=== PATIENT | male | born 1940 | race Caucasian/White ===

== ENCOUNTER 2017-07-06 04:28 | Emergency (ER) | payer BC, MEDICARE ==
[2017-07-06 04:31] VITALS: BP 211/91; PULSE 69; RESP 20; TEMP 97.4; O2SAT 95
[2017-07-06 05:17] VITALS: BP 201/89; PULSE 81; RESP 20; O2SAT 97
[2017-07-06 05:19] LABS: AUTOMATED NEUTROPHIL # 14.2 TH/MM3 (1.8-7.7); BASOPHIL % 0.2 % (0.0-2.0); EOSINOPHIL # 0.1 TH/MM3 (0-0.4); EOSINOPHIL % 0.6 % (0.0-4.0); HEMOGLOBIN 13.1 GM/DL (13.0-17.0); LYMPH % 9.3 % (9.0-44.0); LYMPHOCYTE # 1.6 TH/MM3 (1.0-4.8); MEAN CELL VOLUME 93.8 FL (80.0-100.0); MEAN CORPUSCULAR HEMOGLOBIN 31.5 PG (27.0-34.0); MEAN CORPUSCULAR HGB CONC 33.6 % (32.0-36.0); MEAN PLATELET VOLUME 7.6 FL (7.0-11.0); MONO % 6.7 % (0.0-8.0); MONOCYTE # 1.2 TH/MM3 (0-0.9); NEUT % 83.2 % (16.0-70.0); PLATELET COUNT 391 TH/MM3 (150-450); RED BLOOD COUNT 4.16 MIL/MM3 (4.50-5.90); WHITE BLOOD COUNT 17.1 TH/MM3 (4.0-11.0)
--- NOTE | 2017-07-06 05:19 | PD ---
HPI Chief Complaint: Abdominal Pain Time Seen by Provider: 04:52 Travel History International Travel<30 days: No Contact w/Intl Traveler<30days: No Traveled to known affect area: No History of Present Illness HPI 77yo M with PMH of psoriasis presents to the ED with c/o abdominal pain since 8pm today. Said it started off in lower abdomen but now seems to move up to upper abdomen. +Nausea. Feels a little sob but denies any chest pain. Denies any fever, vomiting, dysuria, hematuria, focal weakness or numbness. PFSH Past Medical History Autoimmune Disease: No Blood Disorders: No Cancer: Yes (skin) Cardiovascular Problems: Yes Chest Pain: Yes Endocrine: No Genitourinary: No Musculoskeletal: No Neurologic: No Psychiatric: No Respiratory: No Tetanus Vaccination: Unknown Influenza Vaccination: No Past Surgical History Other Surgery: Yes (skin and polyps) Social History Alcohol Use: Yes (A BEER-NOT EVERYDAY) Tobacco Use: Yes (10 CIGARETTE -NOT EVERYDAY ONLY WHEN HE DRANKS) Substance Use: No Allergies-Medications (Allergen,Severity, Reaction): Coded Allergies: codeine (Verified Allergy, Severe, 07/06/17) throat closes Reported Meds & Prescriptions Reported Meds & Active Scripts Active Zofran Odt (Ondansetron Odt) 4 Mg Tab 4 Mg SL Q12HR PRN Bactrim DS (Sulfamethoxazole-Trimethoprim) 800-160 Mg Tab 1 Tab PO BID Review of Systems Except as stated in HPI: all other systems reviewed are Neg Physical Exam Narrative GENERAL: 77yo M in mild distress. SKIN: Focused skin assessment warm/dry. HEAD: Atraumatic. Normocephalic. EYES: Pupils equal and round. No scleral icterus. No injection or drainage. ENT: No nasal bleeding or discharge. Mucous membranes pink and moist. NECK: Trachea midline. No JVD. CARDIOVASCULAR: Regular rate and rhythm. No murmur appreciated. RESPIRATORY: No accessory muscle use. Clear to auscultation. Breath sounds equal bilaterally. GASTROINTESTINAL: Abdomen soft, +TTP epigastric, RUQ, LUQ. No rebound tenderness or guarding. MUSCULOSKELETAL: No obvious deformities. No clubbing. No cyanosis. No edema. NEUROLOGICAL: Awake and alert. No obvious cranial nerve deficits. Motor grossly within normal limits. Normal speech. PSYCHIATRIC: Appropriate mood and affect; insight and judgment normal. Data Data Last Documented VS Vital Signs Date Time Temp Pulse Resp B/P (MAP) Pulse Ox O2 Delivery O2 Flow Rate FiO2 07/06/17 07:40 07/06/17 07:00 68 16 96 Room Air 07/06/17 04:31 97.4 Orders Orders Complete Blood Count With Diff (07/06/17 04:52) Comprehensive Metabolic Panel (07/06/17 04:52) Lipase (07/06/17 04:52) Urinalysis - C+S If Indicated (07/06/17 04:52) Ct Abd/Pel W Iv Contrast(Rout) (07/06/17 04:52) Electrocardiogram (07/06/17 04:52) Chest, Single Ap (07/06/17 04:52) Troponin I (07/06/17 04:52) Hydralazine Inj (Apresoline Inj) (07/06/17 05:30) Ketorolac Inj (Toradol Inj) (07/06/17 05:30) Ondansetron Odt (Zofran Odt) (07/06/17 05:30) Urine Culture (07/06/17 05:00) Ceftriaxone Inj (Rocephin Inj) (07/06/17 06:30) Iohexol 350 Inj (Omnipaque 350 Inj) (07/06/17 06:20) Acetaminophen (Tylenol) (07/06/17 06:45) Ed Discharge Order (07/06/17 06:58) Labs Laboratory Tests Test 07/06/17 05:00 White Blood Count 17.1 TH/MM3 Red Blood Count 4.16 MIL/MM3 Hemoglobin 13.1 GM/DL Hematocrit 39.0 % Mean Corpuscular Volume 93.8 FL Mean Corpuscular Hemoglobin 31.5 PG Mean Corpuscular Hemoglobin Concent 33.6 % Red Cell Distribution Width 14.0 % Platelet Count 391 TH/MM3 Mean Platelet Volume 7.6 FL Neutrophils (%) (Auto) 83.2 % Lymphocytes (%) (Auto) 9.3 % Monocytes (%) (Auto) 6.7 % Eosinophils (%) (Auto) 0.6 % Basophils (%) (Auto) 0.2 % Neutrophils # (Auto) 14.2 TH/MM3 Lymphocytes # (Auto) 1.6 TH/MM3 Monocytes # (Auto) 1.2 TH/MM3 Eosinophils # (Auto) 0.1 TH/MM3 Basophils # (Auto) 0.0 TH/MM3 CBC Comment DIFF FINAL Differential Comment Urine Color YELLOW Urine Turbidity CLEAR Urine pH 7.0 Urine Specific [place] 1.023 Urine Protein 30 mg/dL Urine Glucose (UA) NEG mg/dL Urine Ketones 10 mg/dL Urine Occult Blood SMALL Urine Nitrite NEG Urine Bilirubin NEG Urine Urobilinogen LESS THAN 2.0 MG/DL Urine Leukocyte Esterase SMALL Urine RBC 5 /hpf Urine WBC 10 /hpf Urine Mucus FEW /lpf Microscopic Urinalysis Comment CULTURE INDICATED Blood Urea Nitrogen 16 MG/DL Creatinine 0.90 MG/DL Random Glucose 131 MG/DL Total Protein 8.2 GM/DL Albumin 3.1 GM/DL Calcium Level 8.1 MG/DL Alkaline Phosphatase 69 U/L Aspartate Amino Transf (AST/SGOT) 13 U/L Alanine Aminotransferase (ALT/SGPT) 15 U/L Total Bilirubin 0.5 MG/DL Sodium Level 139 MEQ/L Potassium Level 3.9 MEQ/L Chloride Level 103 MEQ/L Carbon Dioxide Level 29.4 MEQ/L Anion Gap 7 MEQ/L Estimat Glomerular Filtration Rate 82 ML/MIN Troponin I LESS THAN 0.02 NG/ML Lipase 38 U/L [facility] Medical Decision Making Medical Screen Exam Complete: Yes Emergency Medical Condition: Yes Interpretation(s) EKG: NSR 70bpm. LAD. PACs. No significant ST elevation or depression. Differential Diagnosis Colitis vs. pancreatitis vs. cholecystitis vs. cystitis Narrative Course 77yo M with abdominal pain since 8pm last night. BP initially very elevated at 211/91. Repeat BP was 173/75 after toradol so hydralazine was not given. Labs reviewed, leukocytosis at 17.1. H/H normal. Lipase low. Troponin negative. LFTs unremarkable. UA showed WBC 10. Culture indicated. Pt given ceftriaxone. CXR negative. Pt given toradol and zofran and said pain has improved as well as nausea. Still with a little pain but pt is allergic to codeine and said his throat closes so does not want to risk taking any medication that may be similar. Pt given acetaminophen. CT a/p showed cholelithiasis with no wall thickening or inflammatory change. Nonspecific, nonobstructive bowel gas may represent mild ileus or gastroenteritis. Prostate gland moderately enlarged. Small paraumbilical hernia containing mesenteric fat. Pt is well appearing and wants to try outpatient treatment first. Return precautions given. Diagnosis Primary Impression: Cystitis Patient Instructions: General Instructions Departure Forms: Tests/Procedures Additional Instructions: Please follow up with your primary care physician in 2-3 days. Return to the ED if symptoms worsen. Med/Other Pt SpecificInfo: Prescription(s) given Scripts Ondansetron Odt (Zofran Odt) 4 Mg Tab 4 MG SL Q12HR Y for Nausea/Vomiting, #8 TAB 0 Refills Prov: Jonna Rodriguez DO 07/06/17 Sulfamethoxazole-Trimethoprim (Bactrim DS) 800-160 Mg Tab 1 TAB PO BID for Infection, #20 TAB 0 Refills Prov: Jonna Rodriguez DO 07/06/17 Disposition: 01 DISCHARGE HOME Condition: Stable Jonna Rodriguez DO July 06, 2017 05:19
[2017-07-06 05:22] LABS: BILIRUBIN, URINE NEG (NEG); BLOOD, URINE SMALL (NEG); GLUCOSE,URINE NEG (NEG); KETONE, URINE 10 mg/dL (NEG); MUCUS URINE FEW /lpf (OCC); NITRITE,URINE NEG (NEG); URINE COLOR YELLOW (YELLW/STRAW); URINE LEUKOCYTE ESTERASE SMALL (NEG)
--- NOTE | 2017-07-06 05:25 | RADRPT ---
EXAM DATE: 07/06/2017 5:13 AM EDT AGE/SEX: 77 years / Male INDICATIONS: Chest pain. CLINICAL DATA: This is the patient's initial encounter. Patient reports that signs and symptoms have been present for 2 days and indicates a pain score of 7/10. MEDICAL/SURGICAL HISTORY: . Smoker. None. COMPARISON: No prior [place] exams available for comparison. FINDINGS: A single AP view of the chest demonstrates the lungs to be symmetrically aerated without evidence of mass, infiltrate or effusion. The cardiomediastinal contours are unremarkable. Osseous structures a re intact. CONCLUSION: No acute cardiopulmonary disease. Electronically signed by: Obed Lira MD 07/06/2017 5:24 AM EDT
[2017-07-06] MEDS ORDERED: KETOROLAC TROMETHAMINE 30 MG/ML (IVP) VIAL IV PUSH ONE (05:30)
[2017-07-06] MEDS ORDERED: ONDANSETRON ODT 4 MG TAB PO ONE (05:30)
[2017-07-06] MEDS ORDERED: hydrALAZINE HCL 20 MG/ML VIAL IV PUSH ONE (05:30)
[2017-07-06 05:46] LABS: ALBUMIN 3.1 GM/DL (3.4-5.0); ALT (GPT) 15 U/L (12-78); AST (GOT) 13 U/L (15-37); BICARBONATE 29.4 MEQ/L (21.0-32.0); BLOOD UREA NITROGEN 16 MG/DL (7-18); CALCIUM 8.1 MG/DL (8.5-10.1); CHLORIDE 103 MEQ/L (98-107); GLOMERULAR FILTRATION RATE 82 ML/MIN (>89); GLUCOSE,RANDOM 131 MG/DL (74-106); SODIUM (NA) 139 MEQ/L (136-145)
[2017-07-06 05:50] VITALS: BP 173/75; PULSE 65; RESP 18; O2SAT 95
[2017-07-06 05:50] LABS: ALKALINE PHOSPHATASE 69 U/L (45-117); TOTAL BILIRUBIN ADULT 0.5 MG/DL (0.2-1.0); TOTAL PROTEIN 8.2 GM/DL (6.4-8.2); TROPONIN I LESS THAN 0.02 NG/ML (0.02-0.05)
[2017-07-06] MEDS ORDERED: IOHEXOL 350 MG/ML 10 ML VIAL (for RAD DIAG) IVCONTRAST ONE (06:20)
[2017-07-06] MEDS ORDERED: cefTRIAXone INJ 1,000 MG in SODIUM CHLORIDE 0.9% INJ 100 ML IV ONE (06:30)
--- NOTE | 2017-07-06 06:38 | RADRPT ---
EXAM DATE: 07/06/2017 6:26 AM EDT AGE/SEX: 77 years / Male INDICATIONS: Upper abdominal pain, nausea. CLINICAL DATA: This is the patient's initial encounter. Patient reports that signs and symptoms have been present for 1 day and indicates a pain score of 7/10. MEDICAL/SURGICAL HISTORY: Cardiovascular disease. Carcinoma, skin. None. ORAL CONTRAST: No oral contrast ingested. RADIATION DOSE: 8.10 CTDI (mGy) COMPARISON: No prior [facility] exams available for comparison. TECHNIQUE: Multiple contiguous axial images were obtained through the abdomen and pelvis following b olus infusion of 90 ml Omnipaque 350 (iohexol) nonionic water-soluble contrast as a single exam dos e. No oral contrast ingested. Using automated exposure control and adjustment of the mA and/or kV ac cording to patient size, the radiation dose was kept as low as reasonably achievable to obtain optima l diagnostic quality images. FINDINGS: Lower Lungs: The visualized lower lungs are clear. Liver: The liver has a homogeneous density without space-occupying lesion. There is no dilation of th e biliary tree. There are radiopaque gallstones which contain air. There is no wall thickening or inf lammatory change. There is mild hepatic steatosis. Spleen: Homogeneous density without enlargement. Pancreas: Unremarkable without mass or calcification. Kidneys: Normal in size and shape. No evidence of solid mass or hydronephrosis. There are bilateral renal cysts. Adrenal Glands: Unremarkable. Aorta: The aorta and proximal iliac vessels are grossly unremarkable without aneurysmal dilation. Bowel/Mesentery: No oral contrast was given limiting the sensitivity. There are multiple loops of no ndilated air-containing small bowel gas and stool noted segmentally in the colon. There is a normal a ppendix. Abdominal Wall: There is a small anterior abdominal wall hernia in the periumbilical region containi ng mesenteric fat. Retroperitoneum: No evidence of adenopathy in retrocrural or periaortic regions. There are multiple lymph nodes noted along the external iliac chain the largest is on the right measures up to 1.6 cm. Bladder: Contours are smooth. Reproductive Organs: Prostate gland is diffusely enlarged and inhomogeneous with impression on the b ladder base. Inguinal: The inguinal region is unremarkable without evidence of adenopathy. Bony Structures: Degenerative change and mild scoliosis are present. CONCLUSION: 1. Cholelithiasis with no wall thickening or inflammatory change. 2. Nonspecific, nonobstructive bowel gas pattern which may represent a mild ileus and/or gastroenter itis. 3. Borderline adenopathy in the pelvis of unclear significance. 4. Prostate gland is moderately enlarged and inhomogeneous. 5. Small paraumbilical hernia containing mesenteric fat. Electronically signed by: Obed Lira MD 07/06/2017 6:36 AM EDT
[2017-07-06] MEDS ORDERED: ACETAMINOPHEN 325 MG TAB PO ONE (06:45)
[2017-07-06 07:00] VITALS: BP 173/69; PULSE 68; RESP 16; O2SAT 96
[2017-07-06] MEDS ORDERED: BACT800T5 PO (07:00)
[2017-07-06] MEDS ORDERED: ZOFR4TAB3 SL (07:00)
--- NOTE | 2017-07-07 07:31 | EKG ---
Date Performed: 07/06/2017 Time Performed: 04:48:26 PTAGE: 77 years EKG: Sinus rhythm WITH OCCASIONAL SUPRAVENTRICULAR PREMATURE COMPLEXES MARKED LEFT AXIS DEVIATION ABNORMAL ECG INTERPR ETATION BASED ON A DEFAULT AGE OF 40 YEARS NO PREVIOUS TRACING DOCTOR: Tiffany Evans Interpretating Date/Time 07/07/2017 07:27:32
== END 2017-07-06 07:43 | disposition home or self-care (01) ==
LOC: NEPC 04:28
DX: N30.90 Cystitis, unspecified without hematuria (principal); R94.31 Abnormal electrocardiogram [ECG] [EKG]; K42.9 Umbilical hernia without obstruction or gangrene; N40.0 Benign prostatic hyperplasia without lower urinary tract symptoms; R11.0 Nausea; Z72.0 Tobacco use; Z88.5 Allergy status to narcotic agent
CPT/HCPCS: 71045; 74177; 80053; 81001; 83690; 84484; 85025; 87086; 93005; 96365; 96375; 99285; J0696; J1885; Q9967